=== PATIENT | male | born 1945 | race Two or more races ===

== ENCOUNTER 2018-10-27 11:45 | Outpatient (CLI) | payer OTHER | END 2018-10-27 11:52 | disposition home or self-care (01) | LOC: RAD 501 11:45 | DX: J45.41 Moderate persistent asthma with (acute) exacerbation (principal) ==

== ENCOUNTER 2021-07-21 05:50 | Day surgery (SDC) | payer OTHER ==
[~2021-07-21 05:50] MED LIST: COZAAR100 MG PO; PRAVASTATIN SOD20 MG PO; ZYLOPRIM100 MG PO
[2021-07-21] MEDS ORDERED: ULTRACET PO (14:51)
[2021-07-21] MEDS ORDERED: SURFAK240 M1 PO (14:51)
[2021-07-21] MEDS ORDERED: AMOX1TAB5 PO (14:51)
[2021-07-21] MEDS ORDERED: PROTONIX40 MG PO (14:51)
== END 2021-07-21 17:45 | disposition home or self-care (01) ==
LOC: CIR.AMB 05:50
PROVIDERS: ATTEND Surgery
DX: K40.90 Unilateral inguinal hernia, without obstruction or gangrene, not specified as recurrent (principal); K42.9 Umbilical hernia without obstruction or gangrene